=== PATIENT | female | born 1960 | race Caucasian/White ===

== ENCOUNTER 2016-03-27 11:00 | Outpatient (RCR) ==
--- NOTE | 2016-02-28 15:40 | RS.OPPTDN ---
Subjective Date of Note: 02/28/16 Visit #: 4 Date of Evaluation: 02/17/16 Payer Source: Medicaid Treatment Diagnosis: Neck and shoulder pain. Current Subjective/complaints:: Patient reports last treatment with manual therapy helped reduce level of pain. Reports pain elevated again yesterday. *Precautions: None Pain Assessment - Pain Description Pain Location: Neck pain with right UE pain also radiating into the right hand with the middle 3 fingers being the worst.. Pain Description: Constant Current Pain Intensity: moderate - Treatment Modality: Ultrasound Parameters/Method Applied: [id number] at 1.5w/cm2 to the right cervical paraspinals , mid scapula and infraspinatus region. Patient in sitting. Patient Position: Sitting - Heat/Cryotherapy Treatment: Hot Pack ([id number] to the right scapular region prior to US and MT. Patient in supine. ) Interventions - Exercise/Activities/Manual Therapy Exercises/Activities: Reviewed HEP, no new additions Manual Therapy: [id number] trigger point release to the upper cervical paraspinals , mid traps and the right infraspinatus. Patient in sitting. Total minutes of Manual Therapy: 18mins HOME EXERCISE PROGRAM: Isometric cervical retraction. Scapular retraction. - Charges Total Direct Minutes: 30mins Total Treatment Time: 50mins Procedures billed for this date of service:: HP, US, MT Assessment: Patient responding well to treatment. She will benefit from progressive postural strengthening. Patient Education: Body/Joint mechanics, Home Exercise Program Patient demonstrates compliance with HEP?: Yes Short Term Goals Goal #1: Patient independent with beginning HEP. Goal to be met by: 03/10/16 Progress towards Goal:: Met Goal #2: Neck pain intermittent. Goal to be met by: 03/10/16 Progress towards Goal:: Progressing Goal #3: AROM WFLs w/o increased pain. Goal to be met by: 03/10/16 Goal #4: Sleep improved 25% due to decreased pain. Goal to be met by: 03/10/16 Fixed Interest Dealer Goals Goal #1: Right shoulder AROM WFLs w/o increased pain. Goal to be met by: 03/31/16 Goal #2: Neck pain 2-3/10 at worst. Goal to be met by: 03/31/16 Progress towards goal: Progressing Goal #3: Right shoulder pain 3-4/10 at worst. Goal to be met by: 03/31/16 Goal #4: Independent with DC HEP. Goal to be met by: 03/31/16 Plan PLAN OF CARE EXPIRES ON:: 03/31/16 ORDER # VISITS AND/OR THROUGH DATE: 03/31/2016 PLAN: Continue Plan of Care (Continue modalities and progress with postural strengthening.)
--- NOTE | 2016-03-03 17:20 | RS.OPPTDN ---
Subjective Date of Note: 03/03/16 Visit #: 5 Date of Evaluation: 02/17/16 Payer Source: Medicaid Treatment Diagnosis: Neck and shoulder pain. Current Subjective/complaints:: Patient reports right lateral scapular pain is much better. She reports she is working on HEP. *Precautions: None Pain Assessment - Pain Description Pain Location: Neck pain with right UE pain also radiating into the right hand with the middle 3 fingers being the worst.. Pain Description: Constant Current Pain Intensity: moderate - Treatment Modality: Ultrasound Parameters/Method Applied: [id number] at 1.5w/cm2 to the right scapular region and upper traps. Patient in sitting. Patient Position: Sitting - Heat/Cryotherapy Treatment: Hot Pack ([id number] to right shoulder and scapular region. Patient in supine. ) Interventions - Exercise/Activities/Manual Therapy Exercises/Activities: [id number] Isometric cervical retraction. Assisted cervical stretching. Red theraband for scapular retraction. Reviewed wall angels. Scapular retraction. Total minutes of Exercise: 10mins Manual Therapy: [id number] trigger point release to the upper cervical paraspinals , mid traps and the right infraspinatus. Patient in sitting. Total minutes of Manual Therapy: 18mins HOME EXERCISE PROGRAM: Isometric cervical retraction. Scapular retraction. Red theraband for scapular retraction. - Charges Total Direct Minutes: 40mins Total Treatment Time: 60mins Procedures billed for this date of service:: HP, US, MT, EX Assessment: Patient responding to treatment and progressing with postural strengthening exercise. Patient Education: Education of diagnosis, Body/Joint mechanics, Home Exercise Program Patient demonstrates compliance with HEP?: Yes Short Term Goals Goal #1: Patient independent with beginning HEP. Goal to be met by: 03/10/16 Progress towards Goal:: Met Goal #2: Neck pain intermittent. Goal to be met by: 03/10/16 Progress towards Goal:: Progressing Goal #3: AROM WFLs w/o increased pain. Goal to be met by: 03/10/16 Progress towards Goal:: Progressing Goal #4: Sleep improved 25% due to decreased pain. Goal to be met by: 03/10/16 Vial Gauger Goals Goal #1: Right shoulder AROM WFLs w/o increased pain. Goal to be met by: 03/31/16 Goal #2: Neck pain 2-3/10 at worst. Goal to be met by: 03/31/16 Progress towards goal: Progressing Goal #3: Right shoulder pain 3-4/10 at worst. Goal to be met by: 03/31/16 Goal #4: Independent with DC HEP. Goal to be met by: 03/31/16 Plan PLAN OF CARE EXPIRES ON:: 03/31/16 ORDER # VISITS AND/OR THROUGH DATE: 03/31/2016
--- NOTE | 2016-03-07 16:49 | RS.OPPTDN ---
Subjective Date of Note: 03/07/16 Visit #: 6 Date of Evaluation: 02/17/16 Payer Source: Medicaid Treatment Diagnosis: Neck and shoulder pain. Current Subjective/complaints:: Patient says pain may be slightly better. Reports that she does not want to try mechanical traction again, but does want to do manual. Reports her pain is the worst at bedtime. States she cannot layon the R side. *Precautions: None Pain Assessment - Pain Description Pain Location: Neck pain with right UE pain also radiating into the right hand with the middle 3 fingers being the worst.. Pain Description: Constant Current Pain Intensity: moderate - Treatment Modality: Ultrasound Parameters/Method Applied: continuous @ 1.5 w/cm2 x 14 mins to the R UT and inferior border of the scapula Patient Position: Sitting - Heat/Cryotherapy Treatment: Hot Pack (20 mins to the R shoulder/scap/neck in supine) Interventions - Exercise/Activities/Manual Therapy Exercises/Activities: see MT Manual Therapy: [id number] trigger point release to the upper cervical paraspinals , mid traps and the right infraspinatus. Patient receives passive stretching of SB and rotation as well as cross stretching. 10 mins of occipital release and manual traction with L SB and rotation as well. HOME EXERCISE PROGRAM: Isometric cervical retraction. Scapular retraction. Red theraband for scapular retraction. - Charges Total Direct Minutes: 42 Total Treatment Time: 62 Procedures billed for this date of service:: hp, u/s, MT2 Assessment: Patient felt relief of muscle guarding and radicular symptoms with treatment today. She maintains mod mm tone to the entire R side (UT, rhomboids) . She will benefit from further MT and u/s for trigger points and radiculopathy. Patient Education: Education of diagnosis, Body/Joint mechanics, Home Exercise Program, Home Safety, Activity Modification, Education of Plan of Care Patient demonstrates compliance with HEP?: Yes Short Term Goals Goal #1: Patient independent with beginning HEP. Goal to be met by: 03/10/16 Progress towards Goal:: Met Goal #2: Neck pain intermittent. Goal to be met by: 03/10/16 Progress towards Goal:: Progressing Goal #3: AROM WFLs w/o increased pain. Goal to be met by: 03/10/16 Progress towards Goal:: Progressing Goal #4: Sleep improved 25% due to decreased pain. Goal to be met by: 03/10/16 Assisted Goals Goal #1: Right shoulder AROM WFLs w/o increased pain. Goal to be met by: 03/31/16 Goal #2: Neck pain 2-3/10 at worst. Goal to be met by: 03/31/16 Progress towards goal: Progressing Goal #3: Right shoulder pain 3-4/10 at worst. Goal to be met by: 03/31/16 Goal #4: Independent with DC HEP. Goal to be met by: 03/31/16 Plan PLAN OF CARE EXPIRES ON:: 03/31/16 ORDER # VISITS AND/OR THROUGH DATE: 03/31/2016 PLAN: Continue Plan of Care
--- NOTE | 2016-03-09 16:23 | RS.OPPTDN ---
Subjective Date of Note: 03/09/16 Visit #: 7 Date of Evaluation: 02/17/16 Payer Source: Medicaid Treatment Diagnosis: Neck and shoulder pain. Current Subjective/complaints:: Patient reports manual therapy has reduced pain and muscle tension in the right scapular region. States she has new orders to further treat right shoulder and partial RTC tear. States she has seen the PA of Dr. Martha Hooker. *Precautions: None Pain Assessment - Pain Description Pain Location: Neck pain with right scapular and upper arm pain. Pain Description: Constant Current Pain Intensity: moderate - Treatment Modality: Ultrasound Parameters/Method Applied: [id number] at 1.5w/cm2 to the right cervical paraspinals , traps, and mid scap region prior to MT. Patient in sitting. Patient Position: Sitting - Heat/Cryotherapy Treatment: Hot Pack ([id number] to the right scapular region prior to US and MT. Patient in sitting. ) Interventions - Exercise/Activities/Manual Therapy Exercises/Activities: Revewied HEP of scapular retraction, cervical retraction, and cervical ROM/stretching. Total minutes of Exercise: 3mins Manual Therapy: [id number] trigger point release to the upper cervical paraspinals , mid traps and the right infraspinatus with patient in supine. Reveiwed relaxation techniques and deep breathing. Total minutes of Manual Therapy: 18mins HOME EXERCISE PROGRAM: Isometric cervical retraction. Scapular retraction. Red theraband for scapular retraction. - Objective Findings Observations,measurements,etc.: Patient and PT discussed new orders. PT will contact physician for clarification of dx and possible infection patient reported. - Charges Total Direct Minutes: 33mins Total Treatment Time: 53mins Procedures billed for this date of service:: HP, US, MT Assessment: Patient responding well to manual therapy and seems to be working on basic HEP. Patient Education: Body/Joint mechanics, Home Exercise Program Patient demonstrates compliance with HEP?: Yes Short Term Goals Goal #1: Patient independent with beginning HEP. Goal to be met by: 03/10/16 Progress towards Goal:: Met Goal #2: Neck pain intermittent. Goal to be met by: 03/10/16 Progress towards Goal:: Progressing Goal #3: AROM WFLs w/o increased pain. Goal to be met by: 03/10/16 Progress towards Goal:: Progressing Goal #4: Sleep improved 25% due to decreased pain. Goal to be met by: 03/10/16 Penitentiary Goals Goal #1: Right shoulder AROM WFLs w/o increased pain. Goal to be met by: 03/31/16 Goal #2: Neck pain 2-3/10 at worst. Goal to be met by: 03/31/16 Progress towards goal: Progressing Goal #3: Right shoulder pain 3-4/10 at worst. Goal to be met by: 03/31/16 Goal #4: Independent with DC HEP. Goal to be met by: 03/31/16 Plan PLAN OF CARE EXPIRES ON:: 03/31/16 ORDER # VISITS AND/OR THROUGH DATE: 03/31/2016 PLAN: Continue Plan of Care
--- NOTE | 2016-03-13 15:26 | RS.OPPTDN ---
Subjective Date of Note: 03/13/16 Visit #: 8 Date of Evaluation: 02/17/16 Payer Source: Medicaid Treatment Diagnosis: Neck and shoulder pain. Current Subjective/complaints:: Reports the injection she had last week has helped reduce her pain significantly. *Precautions: None Pain Assessment - Pain Description Pain Location: Neck pain with right scapular and upper arm pain. Pain Description: Dull, Aching Pain Description: Constant Current Pain Intensity: 6/10 - Treatment Modality: Ultrasound Parameters/Method Applied: 10 mins. @ 1.5 w/cm2,continuous mode to R scapular / UT region Patient Position: Sitting - Heat/Cryotherapy Treatment: Hot Pack (20 mins. prior to US,and manual therapy) Interventions - Exercise/Activities/Manual Therapy Exercises/Activities: Revewied HEP of scapular retraction, cervical retraction, and cervical ROM/stretching. Manual Therapy: [id number] trigger point release to the upper cervical paraspinals , mid traps and the right infraspinatus with patient in sitting,deep tissue massage to same area Total minutes of Manual Therapy: 25 HOME EXERCISE PROGRAM: Isometric cervical retraction. Scapular retraction. Red theraband for scapular retraction. - Charges Total Direct Minutes: 35 Total Treatment Time: 55 Procedures billed for this date of service:: hp,US,manual therapy 2 Assessment: Patient reports relief along the medial border of the R scapula after manual therapy today.She is attentive to recommendations for postural awareness. Patient Education: Body/Joint mechanics, Home Exercise Program, Education of Plan of Care Patient demonstrates compliance with HEP?: Yes Short Term Goals Goal #1: Patient independent with beginning HEP. Goal to be met by: 03/10/16 Progress towards Goal:: Met Goal #2: Neck pain intermittent. Goal to be met by: 03/10/16 Progress towards Goal:: Progressing Goal #3: AROM WFLs w/o increased pain. Goal to be met by: 03/10/16 Progress towards Goal:: Progressing Goal #4: Sleep improved 25% due to decreased pain. 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 Goal to be met by: 03/31/16 Goal #2: Neck pain 2-3/10 at worst. Goal to be met by: 03/31/16 Progress towards goal: Progressing Goal #3: Right shoulder pain 3-4/10 at worst. Goal to be met by: 03/31/16 Progress towards goal: Progressing Goal #4: Independent with DC HEP. Goal to be met by: 03/31/16 Plan PLAN OF CARE EXPIRES ON:: 03/31/16 ORDER # VISITS AND/OR THROUGH DATE: 03/31/2016 PLAN: Continue Plan of Care
--- NOTE | 2016-03-15 16:23 | RS.OPPTDN ---
Subjective Date of Note: 03/15/16 Visit #: 9 Date of Evaluation: 02/17/16 Payer Source: Medicaid Treatment Diagnosis: Neck and shoulder pain. Current Subjective/complaints:: Patient c/o 5/10 pain to the R UT and scapula. States she did not get much sleep last night. Reports she has a throbbing BERGMAN today. *Precautions: None Pain Assessment - Pain Description Pain Location: Neck pain with right scapular and upper arm pain. Pain Description: Dull, Aching Pain Description: Constant Current Pain Intensity: 5/10, with BERGMAN - Treatment Modality: Ultrasound Parameters/Method Applied: 1.5 w/cm2 x 6 mins @ 1 mHz, then 5 mins @ 3.3mHz superficially to the R UT and inferior border of scapula Patient Position: Sitting - Heat/Cryotherapy Treatment: Hot Pack (over the R scapula/UT) Interventions - Exercise/Activities/Manual Therapy Exercises/Activities: Revewied HEP of scapular retraction, cervical retraction, and cervical ROM/stretching. Manual Therapy: [id number] trigger point release to the upper cervical paraspinals , mid traps and the R inferior border of the scap with patient in sitting,deep tissue massage to same area HOME EXERCISE PROGRAM: Isometric cervical retraction. Scapular retraction. Red theraband for scapular retraction. - Charges Total Direct Minutes: 36 Total Treatment Time: 51 Procedures billed for this date of service:: hp, u/s, MT2 Assessment: Patient has BERGMAN today and 5/10 pain to the R UT/infraspinatus region which was relieved with treatment today. Several small trigger points that were inactive remain in the above area with mod muscle guarding limiting R shoulder ROM. Trigger points were less sensitive and BERGMAN was half relieved per patient following session. Patient Education: Education of diagnosis, Body/Joint mechanics, Home Exercise Program, Home Safety, Activity Modification, Education of Plan of Care Comments: Biofreeze given for further relief Patient demonstrates compliance with HEP?: Yes Short Term Goals Goal #1: Patient independent with beginning HEP. Goal to be met by: 03/10/16 Progress towards Goal:: Met Goal #2: Neck pain intermittent. Goal to be met by: 03/10/16 Progress towards Goal:: Progressing Goal #3: AROM WFLs w/o increased pain. Goal to be met by: 03/10/16 Progress towards Goal:: Progressing Goal #4: Sleep improved 25% due to decreased pain. Goal to be met by: 03/10/16 Shelter Goals Goal #1: Right shoulder AROM WFLs w/o increased pain. Goal to be met by: 03/31/16 Goal #2: Neck pain 2-3/10 at worst. Goal to be met by: 03/31/16 Progress towards goal: Progressing Goal #3: Right shoulder pain 3-4/10 at worst. Goal to be met by: 03/31/16 Progress towards goal: Progressing Goal #4: Independent with DC HEP. Goal to be met by: 03/31/16 Plan PLAN OF CARE EXPIRES ON:: 03/31/16 ORDER # VISITS AND/OR THROUGH DATE: 03/31/2016 PLAN: Continue Plan of Care
--- NOTE | 2016-03-17 16:09 | RS.OPPTDN ---
Subjective Date of Note: 03/17/16 Visit #: 10 Date of Evaluation: 02/17/16 Payer Source: Medicaid Treatment Diagnosis: Neck and shoulder pain. Current Subjective/complaints:: Reports tenderness @ C7 today and feels "crunching" with rotation of her neck. *Precautions: None Pain Assessment - Pain Description Pain Location: Neck pain with right scapular and upper arm pain. Pain Description: Dull, Aching Pain Description: Constant Current Pain Intensity: 6-7/10 - Treatment Modality: Ultrasound Parameters/Method Applied: 10 mins. @ 1.5 w/cm2,continuous mode to R shoulder. Patient Position: Sitting - Heat/Cryotherapy Treatment: Hot Pack (20 mins. prior to US and manual therapy) Interventions - Exercise/Activities/Manual Therapy Exercises/Activities: Revewied HEP of scapular retraction, cervical retraction, and cervical ROM/stretching. Total minutes of Exercise: 0 Manual Therapy: [id number] trigger point release to the upper cervical paraspinals , mid traps and the R inferior border of the scap with patient in sitting,deep tissue massage to same area Total minutes of Manual Therapy: 25 mins.deep tisue mobs. to cervical/UT's, scapulae,trigger point pressure t HOME EXERCISE PROGRAM: Isometric cervical retraction. Scapular retraction. Red theraband for scapular retraction. - Charges Total Direct Minutes: 35 Total Treatment Time: 55 Procedures billed for this date of service:: hp,US,manual therapy 2 Assessment: Reports significant relief today after treatment,less pain with cervical motion.She has significant trigger point in the muscle belly of R upper trap.She has good understanding of hEP, and pain control. Patient Education: Body/Joint mechanics Patient demonstrates compliance with HEP?: Yes Short Term Goals Goal #1: Patient independent with beginning HEP. Goal to be met by: 03/10/16 Progress towards Goal:: Met Goal #2: Neck pain intermittent. Goal to be met by: 03/10/16 Progress towards Goal:: Progressing Goal #3: AROM WFLs w/o increased pain. Goal to be met by: 03/10/16 Progress towards Goal:: Progressing Goal #4: Sleep improved 25% due to decreased pain. Goal to be met by: 03/10/16 (N/A) Intermediate Goals Goal #1: Right shoulder AROM WFLs w/o increased pain. Goal to be met by: 03/31/16 Progress towards goal: Progressing Goal #2: Neck pain 2-3/10 at worst. Goal to be met by: 03/31/16 Progress towards goal: Progressing Goal #3: Right shoulder pain 3-4/10 at worst. Goal to be met by: 03/31/16 Progress towards goal: Progressing Goal #4: Independent with DC HEP. Goal to be met by: 03/31/16 Progress towards goal: Progressing Plan PLAN OF CARE EXPIRES ON:: 03/31/16 ORDER # VISITS AND/OR THROUGH DATE: 03/31/2016 PLAN: Continue Plan of Care
--- NOTE | 2016-03-20 15:53 | RS.OPPTDN ---
Subjective Date of Note: 03/20/16 Visit #: 11 Date of Evaluation: 02/17/16 Payer Source: Medicaid Treatment Diagnosis: Neck and shoulder pain. Current Subjective/complaints:: Patient reports last treatment reduced neck pain and headache. States she is working on stretching. Pain is mainly at the right mid scapular border and the porsterior shoulder joint (around infraspinatus). *Precautions: None Pain Assessment - Pain Description Pain Location: Neck pain with right scapular and upper arm pain. Pain Description: Dull, Aching Pain Description: Constant Current Pain Intensity: 5-6/10 - Treatment Modality: Ultrasound Parameters/Method Applied: [id number] at 1.5w/cm2 to the right cervical paraspinals , trap trigger point, mid scapular border, and posterior shoulder joint. Patient Position: Sitting - Heat/Cryotherapy Treatment: Hot Pack ([id number] to the right shoulder and scapular region prior to US and MT. Supine. ) Interventions - Exercise/Activities/Manual Therapy Exercises/Activities: x3mins. Revewied HEP of scapular retraction, cervical retraction, limited anterior chest stretch, and cervical ROM/stretching. Total minutes of Exercise: 3mins Manual Therapy: [id number] trigger point release to the upper cervical paraspinals , mid traps and the R inferior border of the scap with patient in sitting, deep tissue massage to same area Total minutes of Manual Therapy: 24mins HOME EXERCISE PROGRAM: Isometric cervical retraction. Scapular retraction. Red theraband for scapular retraction. - Charges Total Direct Minutes: 39mins Total Treatment Time: 59mins Procedures billed for this date of service:: HP, US, MTx2 Assessment: Patient responding to treatment. Patient Education: Body/Joint mechanics, Home Exercise Program Patient demonstrates compliance with HEP?: Yes Short Term Goals Goal #1: Patient independent with beginning HEP. Goal to be met by: 03/10/16 Progress towards Goal:: Met Goal #2: Neck pain intermittent. Goal to be met by: 03/10/16 Progress towards Goal:: Progressing Goal #3: AROM WFLs w/o increased pain. Goal to be met by: 03/10/16 Progress towards Goal:: Progressing Goal #4: Sleep improved 25% due to decreased pain. Goal to be met by: 03/10/16 (N/A) Usp Goals Goal #1: Right shoulder AROM WFLs w/o increased pain. Goal to be met by: 03/31/16 Progress towards goal: Progressing Goal #2: Neck pain 2-3/10 at worst. Goal to be met by: 03/31/16 Progress towards goal: Progressing Goal #3: Right shoulder pain 3-4/10 at worst. Goal to be met by: 03/31/16 Progress towards goal: Progressing Goal #4: Independent with DC HEP. Goal to be met by: 03/31/16 Progress towards goal: Progressing Plan PLAN OF CARE EXPIRES ON:: 03/31/16 ORDER # VISITS AND/OR THROUGH DATE: 03/31/2016 PLAN: Continue Plan of Care
--- NOTE | 2016-03-22 15:19 | RS.OPPTDN ---
Subjective Date of Note: 03/22/16 Visit #: 12 Date of Evaluation: 02/17/16 Payer Source: Medicaid Treatment Diagnosis: Neck and shoulder pain. Current Subjective/complaints:: Patient reports trigger point work helped reduce pain last session. *Precautions: None Pain Assessment - Pain Description Pain Location: Neck pain with right scapular and upper arm pain. Pain Description: Dull, Aching Pain Description: Constant Current Pain Intensity: 5/10 - Treatment Modality: Ultrasound Parameters/Method Applied: [id number] at 1.5w/cm2 to the right cervical paraspinals , traps, and posterior shoulder joint. Patient in sitting. Patient Position: Sitting - Heat/Cryotherapy Treatment: Hot Pack ([id number] to the right neck and scapular region prior to US and MT. Supine. ) Interventions - Exercise/Activities/Manual Therapy Exercises/Activities: [id number]. Revewied HEP. Assisted with cervical stretching. Scapular retraction, cervical retraction. Added black theraband for scapular retraction. Began red theraband for bilateral shoulder ER. Total minutes of Exercise: 10mins Manual Therapy: [id number] trigger point release to the upper cervical paraspinals , mid traps and the R inferior border of the scap with patient in sitting, deep tissue massage to same area Total minutes of Manual Therapy: 20mins HOME EXERCISE PROGRAM: Isometric cervical retraction. Scapular retraction. Red theraband for scapular retraction. - Charges Total Direct Minutes: 42mins Total Treatment Time: 57mins Procedures billed for this date of service:: HP, US, MT, EX Assessment: Patient reporting a reduction in pain and progressing with strengthening. Patient Education: Home Exercise Program Patient demonstrates compliance with HEP?: Yes Short Term Goals Goal #1: Patient independent with beginning HEP. Goal to be met by: 03/10/16 Progress towards Goal:: Met Goal #2: Neck pain intermittent. Goal to be met by: 03/10/16 Progress towards Goal:: Met Goal #3: AROM WFLs w/o increased pain. Goal to be met by: 03/10/16 Progress towards Goal:: Progressing Goal #4: Sleep improved 25% due to decreased pain. 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 Goal to be met by: 03/31/16 Progress towards goal: Progressing Goal #2: Neck pain 2-3/10 at worst. Goal to be met by: 03/31/16 Progress towards goal: Progressing Goal #3: Right shoulder pain 3-4/10 at worst. Goal to be met by: 03/31/16 Progress towards goal: Progressing Goal #4: Independent with DC HEP. Goal to be met by: 03/31/16 Progress towards goal: Progressing Plan PLAN OF CARE EXPIRES ON:: 03/31/16 ORDER # VISITS AND/OR THROUGH DATE: 03/31/2016 PLAN: Continue Plan of Care
--- NOTE | 2016-03-24 12:07 | RS.OPPTDN ---
Subjective Date of Note: 03/24/16 Visit #: 13 Date of Evaluation: 02/17/16 Payer Source: Medicaid Treatment Diagnosis: Neck and shoulder pain. Current Subjective/complaints:: Patient reports mild discomfort at the base of the cervicl spine. Reports right mid scap and posterior shoulder joint pain are much better, trigger points are less painful. States she is working on postural exercises with theraband. *Precautions: None Pain Assessment - Pain Description Pain Location: Neck pain with right scapular and upper arm pain. Pain Description: Dull, Aching Pain Description: Constant Current Pain Intensity: 4-5/10 - Treatment Modality: Ultrasound Parameters/Method Applied: [id number] to the bilateral cervical paraspinals, right traps, and right shoulder joint. Patient in sitting. Patient Position: Sitting - Heat/Cryotherapy Treatment: Hot Pack ([id number] to the right shoulder prior to US. Patient in supine. ) Interventions - Exercise/Activities/Manual Therapy Exercises/Activities: x8mins. Revewied HEP. Assisted with cervical stretching. Scapular retraction, cervical retraction. Reviewed theraband for scapular retraction and anterior chest/pectoralis stretching. Total minutes of Exercise: 8mins. Manual Therapy: [id number] trigger point release to the upper cervical paraspinals , mid traps and the R inferior border of the scap with patient in sitting, deep tissue massage to same area Total minutes of Manual Therapy: 18mins HOME EXERCISE PROGRAM: Isometric cervical retraction. Scapular retraction. Red theraband for scapular retraction. - Charges Total Direct Minutes: 40mins Total Treatment Time: 55mins Procedures billed for this date of service:: HP, US, MT, EX Assessment: Patient progressing well with postural strengthening exercise. Patient Education: Education of diagnosis, Body/Joint mechanics, Home Exercise Program, Home Safety Patient demonstrates compliance with HEP?: Yes Short Term Goals Goal #1: Patient independent with beginning HEP. Goal to be met by: 03/10/16 Progress towards Goal:: Met Goal #2: Neck pain intermittent. Goal to be met by: 03/10/16 Progress towards Goal:: Met Goal #3: AROM WFLs w/o increased pain. Goal to be met by: 03/10/16 Progress towards Goal:: Progressing Goal #4: Sleep improved 25% due to decreased pain. 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 Goal to be met by: 03/31/16 Progress towards goal: Progressing Goal #2: Neck pain 2-3/10 at worst. Goal to be met by: 03/31/16 Progress towards goal: Progressing Goal #3: Right shoulder pain 3-4/10 at worst. Goal to be met by: 03/31/16 Progress towards goal: Progressing Goal #4: Independent with DC HEP. Goal to be met by: 03/31/16 Progress towards goal: Progressing Plan PLAN OF CARE EXPIRES ON:: 03/31/16 ORDER # VISITS AND/OR THROUGH DATE: 03/31/2016 PLAN: Continue Plan of Care
--- NOTE | 2016-03-27 13:20 | RS.OPPTDN ---
Subjective Date of Note: 03/27/16 Visit #: 14 Date of Evaluation: 02/17/16 Payer Source: Medicaid Treatment Diagnosis: Neck and shoulder pain. Current Subjective/complaints:: Patient reports continued improvement in neck and shoulder pain. States she is working on HEP. States trigger point release is helping. *Precautions: None Pain Assessment - Pain Description Pain Location: Neck pain with right scapular and upper arm pain. Pain Description: Dull, Aching Pain Description: Constant Current Pain Intensity: 4/10 - Treatment Modality: Ultrasound Parameters/Method Applied: [id number] at 1.5w/cm2 to the right upper traps, mid scap, and posterior shoulder joint. Patient Position: Sitting - Heat/Cryotherapy Treatment: Hot Pack ([id number] to the right shoulder and scapular region. Supine. ) Interventions - Exercise/Activities/Manual Therapy Exercises/Activities: Discussed HEP. No new additions. Manual Therapy: [id number] trigger point release and deep tissue work to the upper cervical paraspinals, mid traps and the border of the right scap with patient in sitting. Total minutes of Manual Therapy: 20mins HOME EXERCISE PROGRAM: Isometric cervical retraction. Scapular retraction. Red theraband for scapular retraction. Red theraband for bilateral shoulder ER. - Charges Total Direct Minutes: 32mins Total Treatment Time: 52mins Procedures billed for this date of service:: HP, US, MT Assessment: Patient continues to report progress. Will need to continue postural correction and strengthening. Patient Education: Home Exercise Program, Activity Modification, Education of Plan of Care Patient demonstrates compliance with HEP?: Yes Short Term Goals Goal #1: Patient independent with beginning HEP. Goal to be met by: 03/10/16 Progress towards Goal:: Met Goal #2: Neck pain intermittent. Goal to be met by: 03/10/16 Progress towards Goal:: Met Goal #3: AROM WFLs w/o increased pain. Goal to be met by: 03/10/16 Progress towards Goal:: Progressing Goal #4: Sleep improved 25% due to decreased pain. 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 Goal to be met by: 03/31/16 Progress towards goal: Progressing Goal #2: Neck pain 2-3/10 at worst. Goal to be met by: 03/31/16 Progress towards goal: Progressing Goal #3: Right shoulder pain 3-4/10 at worst. Goal to be met by: 03/31/16 Progress towards goal: Progressing Goal #4: Independent with DC HEP. Goal to be met by: 03/31/16 Progress towards goal: Progressing Plan PLAN OF CARE EXPIRES ON:: 03/31/16 ORDER # VISITS AND/OR THROUGH DATE: 03/31/2016 PLAN: Continue Plan of Care
== END 2016-03-28 ==
PROVIDERS: ATTEND Neurological Surgery
DX: M54.12 Radiculopathy, cervical region (principal); M12.811 Other specific arthropathies, not elsewhere classified, right shoulder; M25.511 Pain in right shoulder

== ENCOUNTER 2016-03-31 11:20 | Outpatient (RCR) ==
--- NOTE | 2016-03-31 13:26 | RS.OPPTDN ---
Subjective Date of Note: 03/31/16 Visit #: 15 Date of Evaluation: 02/17/16 Payer Source: Medicaid Treatment Diagnosis: Neck and shoulder pain. Current Subjective/complaints:: Patient reports she has made good progress. She is able to do more light activities in her home without an increase in pain. She will continue to progress HEP and postural strengthening following discharge. *Precautions: None Pain Assessment - Pain Description Pain Location: Neck pain with right scapular and upper arm pain. Pain Description: Constant Current Pain Intensity: 3-4/10 - Treatment Modality: Ultrasound Parameters/Method Applied: [id number] at 1.5w/cm2 to the right cervcal paraspinals , posterior shoulder joint, and mid scap region. Patient Position: Sitting - Heat/Cryotherapy Treatment: Hot Pack ([id number] to the right shoulder prior to US. Patient in sitting. ) Interventions - Exercise/Activities/Manual Therapy Exercises/Activities: [id number] Reivewed HEP. Isometric cervical retration, cuff series, and increased to green theraband for bilateral shoulder ER. Total minutes of Exercise: 10mins Manual Therapy: [id number] trigger point release and deep tissue work to the upper cervical paraspinals, mid traps and the border of the right scap with patient in sitting. Total minutes of Manual Therapy: 18mins HOME EXERCISE PROGRAM: Isometric cervical retraction. Scapular retraction. Red theraband for scapular retraction. Red theraband for bilateral shoulder ER. - Charges Total Direct Minutes: 40mins Total Treatment Time: 55mins Procedures billed for this date of service:: HP, US, MT, EX Assessment: Patient has progressed and POC ended this date. She will continue HEP following discharge. Patient Education: Body/Joint mechanics, Home Exercise Program, Education of Plan of Care Patient demonstrates compliance with HEP?: Yes Short Term Goals Goal #1: Patient independent with beginning HEP. Goal to be met by: 03/10/16 Progress towards Goal:: Met Goal #2: Neck pain intermittent. Goal to be met by: 03/10/16 Progress towards Goal:: Met Goal #3: AROM WFLs w/o increased pain. Goal to be met by: 03/10/16 Progress towards Goal:: Met Goal #4: Sleep improved 25% due to decreased pain. 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 Goal to be met by: 03/31/16 Progress towards goal: Progressing Goal #2: Neck pain 2-3/10 at worst. Goal to be met by: 03/31/16 Progress towards goal: Progressing Goal #3: Right shoulder pain 3-4/10 at worst. Goal to be met by: 03/31/16 Progress towards goal: Progressing Goal #4: Independent with DC HEP. Goal to be met by: 03/31/16 Progress towards goal: Met Plan PLAN OF CARE EXPIRES ON:: 03/31/16 ORDER # VISITS AND/OR THROUGH DATE: 03/31/2016 PLAN: Plan for Discharge (Discharge with HEP.)
--- NOTE | 2016-03-31 13:28 | RS.QUICKDC ---
Discharge from PT Date of Discharge: 03/31/16 Number of Visits: 15 Reason for Discharge: Patient progressed with treatment. She met 5 of 8 treatment goals and was independent with HEP. Please refer to last Daily Note for specifics of treatment and progress with goals. Discharge this time and HEP.
== END 2016-04-25 ==
PROVIDERS: ATTEND Neurological Surgery
DX: M54.12 Radiculopathy, cervical region (principal); M12.811 Other specific arthropathies, not elsewhere classified, right shoulder; M25.511 Pain in right shoulder

== ENCOUNTER 2016-05-09 18:24 | Emergency (ER) ==
[2016-05-09 18:29] VITALS: BP 151/83; TEMP 98.6; BMI 34.3
--- NOTE | 2016-05-09 19:20 | ED.PDOC ---
General ED Provider: Dr. SORAYA THOMAS Chief Complaint: Fall Stated Complaint: patient is a 56 year old female whos comes to the ER stating that she fell into the door when going up step. at 4 pm this evening, she felt dizzy afterwards. Has neck pain after the fall. Also states left side of lower lip and left side of forehead hit door facing. c/o pain to right elbow and forearm. states then fell back and hit back of head. Time Seen by Physician: 19:10 Mode of Arrival: Walk-In Information Source: Patient Exam Limitations: No limitations Primary Care Provider: GIUSEPPE SANTAMARIA Nursing and Triage Documentation Reviewed and Agree: Yes Trauma/Injury Complaint Exam - Facial Injury Complaint/Exam Location of Pain: Reports: Left, Forehead, Upper lip Mechanism of Injury: Reports: Trauma Onset/Duration: 2 hours ago Symptoms Are: Still present Onset of Pain: Reports: Immediate Initial Severity: Severe Current Severity: Moderate Location: Reports: Diffuse Character: Reports: Dull, Aching Alleviating: Reports: None Aggravating: Reports: Movement, Eating Associated Signs and Symptoms: Reports: Swelling, Bruising. Denies: Loss of consciousness Related Surgical History: Reports: None Facial Findings: Present: Swelling, Abrasion Face Picture: 1 - contusion Differential Diagnoses: Abrasion, Contusion - Trauma Complaint/Exam Location of Pain or Injury: Reports: RUE Mechanism of Injury: Reports: Fall Onset/Duration: 2 hours Symptoms Are: Still present Timing of Treatment: Immediate Initial Severity: Severe Current Severity: Moderate Character: Reports: Aching Aggravating: Reports: Movement Alleviating: Reports: Rest Associated Signs and Symptoms: Reports: Swelling. Denies: LOC, Confusion, Memory loss, Lethargy, Vomiting, Bleeding, Bruising, Extremity disuse, Painful respiration, Hoarseness, Dysphagia, Hemoptysis, Significant blood loss Related History: Denies: Similar episode, Alcohol abuse, Drug abuse, Alleged assault, Anticoagulants, Occupational injury : No Skin Findings: Present: Contusion Differential Diagnoses: Fracture, Sprain, Strain Review of Systems - Review Of Systems Constitutional: Reports: No symptoms Cardiac: Reports: Lightheadedness Musculoskeletal: Reports: Joint swelling Skin: Reports: Bruising All Other Systems: Reviewed and Negative Past Medical History - Past Medical History Endocrine: Reports: None Cardiovascular: Reports: None Respiratory: Reports: None Hematological: Reports: None Gastrointestinal: Reports: None Genitourinary: Reports: None Neuro/Psych: Reports: None Musculoskeletal: Reports: None Cancer: Reports: None Last Menstrual Period: n/a - Surgical History General Surgical History: Reports: Hysterectomy, Cholecystectomy, Tonsillectomy , Other (vericose vein right leg) - Family History Family History: Reports: None - Social History Smoking Status: Never smoker Hx Substance Use: No Alcohol Screening: None Physical Exam - Physical Exam Appearance: Obese Ill-appearing: Moderate Pain Distress: Moderate Eyes: GENEVA, EOMI, Conjunctiva clear ENT: Ears normal, Nose normal, Oropharynx normal Neck: Supple Respiratory: Airway patent, Breath sounds clear, Breath sounds equal, Respirations nonlabored Cardiovascular: RRR, Pulses normal, No rub, No murmur GI/: Soft, Nontender, No masses, Bowel sounds normal, No Organomegaly Musculoskeletal: Limited ROM, Edema (right elbow ) Psychiatric: Anxious Interpretation - Radiology Interpretation Radiology Interpretation By: Radiologist Radiology Results: Negative Exam Interpreted: CT Scan (Head, c spine, Maxial facial ) Radiology Interpretation By: ED Physician Radiology Results: Negative Exam Interpreted: Other (right forearm and Elbow ) Critical Care Note - Critical Care Note Total Time (mins): 0 Course - Course Orders, Labs, Meds: Orders Category Date Time Status CT CERVICAL SPINE W/O CONTRAST Stat RADS 05/09/16 19:[address] HEAD W/O CONTRAST Stat RADS 05/09/16 19:[address] MAXILLOFACIAL W/O CONTRAST Stat RADS 05/09/16 19:11 Completed ELBOW, RIGHT MIN 3 VIEWS Stat RADS 05/09/16 19:11 Completed FOREARM, RIGHT 2 VIEWS Stat RADS 05/09/16 19:11 Completed Vital Signs: Temp Pulse Resp BP Pulse Ox 05/09/16 18:25 98.6 F 80 16 151/83 H 98 Departure - Departure Time of Disposition: 20:45 Disposition: HOME SELF-CARE Discharge Problem: Contusion Qualifiers: Encounter type: initial encounter Contusion area: head Contusion of head detail : unspecified part of head Qualifier Code: (S00.93XA) Contusion of unspecified part of head, initial encounter Elbow sprain Qualifiers: Encounter type: initial encounter Laterality: right Qualifier Code: (S53.401A) Unspecified sprain of right elbow, initial encounter Instructions: Elbow Sprain (ED), Facial Contusion (ED) Condition: Good Pt referred to PMD for follow-up: Yes Additional Instructions: Take pain medication as prescribed Follow up with PCP in 3 -5 days Prescriptions: Acetaminophen with Codeine [Tylenol #3 Tab] 1 tab PO Q4H PRN #15 tablet PRN Reason: Severe Pain Allergies/Adverse Reactions: Allergies aspirin Allergy (Severe, Unverified 08/08/13 11:15) rash, swelling all over Pt notified to buy medical alert necklace levofloxacin [From Levaquin] Allergy (Severe, Unverified 12/02/15 09:43) vomiting naproxen Adverse Reaction (Verified 05/09/16 18:29) Home Medications: Ambulatory Orders Acetaminophen with Codeine [Tylenol #3 Tab] 1 tab PO Q4H PRN #15 tablet Cyclobenzaprine HCl [Flexeril] 10 mg PO BEDTIME 05/09/16 Disposition Discussed With: Patient
--- NOTE | 2016-05-09 19:36 | CT ---
EXAM: CT scan of the head without contrast HISTORY: Fall TECHNIQUE: Imaging of the head was performed without intravenous contrast. 5 mm thin axial images and coronal and sagittal images were provided for interpretation. FINDINGS: The ray-white interface appears normal. No acute hemorrhages are seen. There are no ex traaxial collections. There is no mass effect. The basal cisterns are patent. The paranasal sinus es and mastoid air cells are clear. The calvarium and extracranial soft tissues are normal. IMPRESSION: No acute intracranial abnormalities are seen.
--- NOTE | 2016-05-09 19:40 | CT ---
Exam: CT scan of the maxillofacial area. Date: 05/09/2016. Comparison: None. HISTORY: Trauma. TECHNIQUE: Helical scan of the maxillofacial area was performed. FINDINGS: A cavum septum pellucidum is incidentally seen, but the cerebral hemispheres are incomple tely visualized. The frontals soft tissues are within normal limits. The bones of the maxillofacia l region, including the nasal bone and mandible are intact. There has been extraction of multiple m axillary teeth. The paranasal sinuses and mastoid air cells are clear. The nasal septum is midline . There is no contact of the nasal septum and turbinate mucosa. Middle turbinates have a normal or ientation. The ostiomeatal complexes are patent. Impression: No acute findings in the maxillofacial region; no evidence of fracture or radiopaque fo reign body.
--- NOTE | 2016-05-09 19:53 | CT ---
EXAM: CT scan of the cervical spine without contrast HISTORY: Neck pain, trauma TECHNIQUE: Imaging of the cervical spine was performed without contrast. Sagittal and coronal mercedes nstructions and axial images were provided for interpretation. FINDINGS: The occipital condyles, C1 ring appear intact. The odontoid process and C2 vertebral bod y appear intact. There is a normal alignment of the facet joints. The spinous processes are normal . The prevertebral soft tissues are normal. IMPRESSION: No acute fracture dislocation seen within the cervical spine.
--- NOTE | 2016-05-09 20:40 | DI ---
Exam: Right elbow three views HISTORY: Elbow injury and pain Findings / impression: No significant bony or articular abnormality. Negative exam.
--- NOTE | 2016-05-09 20:40 | DI ---
Exam: Rightforearm two views HISTORY: Injury and pain Findings / impression: No bony abnormality is seen. No significant surrounding soft tissue abnorma lity. Negative exam.
== END 2016-05-09 20:50 | disposition home or self-care (01) ==
LOC: ED 18:24
DX: S00.93XA Contusion of unspecified part of head, initial encounter (principal); S53.401A Unspecified sprain of right elbow, initial encounter; R42 Dizziness and giddiness; M54.2 Cervicalgia; W19.XXXA Unspecified fall, initial encounter
CPT/HCPCS: 99283

== ENCOUNTER 2016-05-11 10:30 | Outpatient (CLI) ==
--- NOTE | 2016-05-11 12:26 | DI ---
EXAM: RIGHT SHOULDER HISTORY: Disorder of bone FINDINGS: Right shoulder three-view. There is heterogeneous density within the medullary portion o f the upper humerus extending into the humeral neck. No periosteal reaction or fracture. General b one density is otherwise within normal limits. The AC and glenohumeral joints appear normal. Olivia l soft tissues. IMPRESSION: Heterogeneous density upper humerus possibly related to bony infarction or chondroid tumor (benign v ersus malignant). Consider correlation with MRI, especially if there is regional pain.
--- NOTE | 2016-05-11 12:31 | DI ---
EXAM: Scapula, two-view HISTORY: Disorder of bone COMPARISON: None FINDINGS/IMPRESSION: The scapula appears normal. There is a indeterminate mixed lytic and scleroti c lesion in the right humerus. This is better characterized on CT same day. No focal soft tissue ab normality
--- NOTE | 2016-05-11 12:55 | CT ---
EXAM: Noncontrast CT of the right shoulder HISTORY: Other specified disorders of bone COMPARISON: None available TECHNIQUE: Noncontrast CT of the right shoulder FINDINGS: No fracture or dislocation is identified. No significant joint space loss of the glenohumeral joint is seen. There is minimal acromioclavicular joint marginal osteophyte and subcortical cyst formati on. No glenohumeral joint effusion is seen. There is a subcortical cyst of the anterior aspect of the greater tuberosity. There is a chondroid matrix lesion of the humeral neck with intervening chante encies. No cortical destruction is seen. Evaluation of the rotator cuff is limited with noncontras t CT. IMPRESSION: No acute osseous abnormality. Humeral neck lesion. The appearance and location is suggestive of an enchondroma. If there is pain in this region, MRI without and with IV contrast could be considered to exclude other etiologies. Otherwise, 3-month follow-up radiographs are recommended to document stability. Minimal acromioclavicular joint osteoarthritis. Small subcortical cyst of the greater tuberosity which can be seen with rotator cuff pathology.
== END 2016-05-11 10:31 | disposition home or self-care (01) ==
LOC: RAD 10:30
PROVIDERS: ATTEND Nurse Practitioner Family
DX: M89.8X1 Other specified disorders of bone, shoulder (principal)

== ENCOUNTER 2016-07-13 14:35 | Outpatient (CLI) | END 2016-07-13 14:36 | disposition home or self-care (01) | LOC: CAR 14:35 | PROVIDERS: ATTEND Nurse Practitioner Family | DX: I49.9 Cardiac arrhythmia, unspecified (principal) | CPT/HCPCS: 93005; 93010 ==

== ENCOUNTER 2016-09-07 13:43 | Outpatient (CLI) ==
--- NOTE | 2016-09-07 14:03 | DI ---
EXAM: RIGHT SHOULDER HISTORY: Mass on right shoulder FINDINGS: Right shoulder three-view. Compared to 05/11/2016. Again noted is heterogeneous density within the upper humeral metaphysis with no radiographic change since previous exam. No fracture i s identified. No arthropathy. Soft tissues are grossly unremarkable. IMPRESSION: Stable heterogeneous density of the proximal humeral metaphysis which would be most consistent with bony infarction. Chondroid tumor remains within the differential. If more definite diagnostic info rmation is indicated, consider correlation with MRI.
== END 2016-09-07 13:44 | disposition home or self-care (01) ==
LOC: RAD 13:43
PROVIDERS: ATTEND Physical Medicine & Rehabilitation
DX: R22.31 Localized swelling, mass and lump, right upper limb (principal)

== ENCOUNTER 2017-10-17 15:40 | Outpatient (CLI) | END 2017-10-17 15:41 | disposition home or self-care (01) | LOC: FCC-LAB 15:40 | PROVIDERS: ATTEND Family Medicine | DX: R53.81 Other malaise (principal); R00.2 Palpitations | CPT/HCPCS: 36415; 80053; 84443; 85025 ==

== ENCOUNTER 2017-11-07 16:12 | Outpatient (CLI) ==
[2017-11-07 16:47] VITALS: BP 140/89; TEMP 98
[2017-11-07] MEDS ORDERED: SODIUM CHLORIDE 500 ML IV STA (16:47)
[2017-11-07] MEDS: SODIUM CHLORIDE 1,000 ML IV SCH ×3 (16:51→18:59)
--- NOTE | 2017-11-07 17:53 | CT ---
EXAM: CT of the abdomen and pelvis with and without contrast. HISTORY: Right lower quadrant pain. Prior history of kidney stones. Prior cholecystectomy and hyst erectomy.. COMPARISON: 10/16/2014 TECHNIQUE: Contiguous axial images at 5 mm intervals were obtained from lung bases to the pubic symp hysis. The study was performed before and after IV contrast. Oral contrast was not given. CONTRAST: 75 ml of Omnipaque 350. FINDINGS: CHEST: The lung bases are clear. Heart size is within normal limits. ABDOMEN: LIVER: The liver demonstrates normal homogeneous enhancement without solid mass lesions or intrahepa tic ductal dilatation. GALLBLADDER: The gallbladder is absent. There are clips in the gallbladder fossa. No fluid or infl ammation is seen. PANCREAS: The pancreas demonstrates normal homogeneous enhancement without solid masses or surroundi ng inflammation. SPLEEN: The spleen demonstrates normal homogeneous enhancement. No mass lesions are identified. ADRENAL GLANDS: Normal. KIDNEYS: The kidneys demonstrate normal homogeneous enhancement without solid masses, hydronephrosis or nephrolithiasis. There are no obstructing ureteral stones. AORTA: The aorta is well opacified. There is no aneurysm or dissection. RETROPERITONEUM: There is no significant retroperitoneal or mesenteric adenopathy. No fluid collect ions or mass lesions. BOWEL: The bowel is unopacified. There are no dilated loops of small bowel to suggest small bowel o bstruction. There is no free fluid, free air or significant inflammatory process. The appendix is i dentified and appears normal. There is no fluid or inflammation in the right lower quadrant. A moder [id number] amount of stool is seen throughout the colon. Scattered diverticula are seen without ev idence of acute diverticulitis. PELVIS: BLADDER: The bladder is not well distended which limits evaluation. No acute abnormalities are seen GENITOURINARY STRUCTURES: The uterus is absent. There is no fluid the pelvis. OSSEOUS STRUCTURES: Normal for age. IMPRESSION: 1. No acute intra-abdominal abnormalities. No free fluid or free air or significant inflammatory pr ocess. 2. The appendix is identified and is normal. There are no obstructing ureteral stones. 3. Diverticulosis without evidence of acute diverticulitis.
== END 2017-11-07 16:13 | disposition home or self-care (01) ==
LOC: OPMED 16:12
PROVIDERS: ATTEND Family Medicine
DX: R10.31 Right lower quadrant pain (principal); R19.7 Diarrhea, unspecified; E86.0 Dehydration; Z87.442 Personal history of urinary calculi
CPT/HCPCS: 36415; 80053; 84439; 85025; 96360; 96361

== ENCOUNTER 2017-11-07 17:32 | Outpatient (CLI) | END 2017-11-07 17:33 | disposition home or self-care (01) | LOC: FCC-LAB 17:32 | PROVIDERS: ATTEND Family Medicine | DX: R10.31 Right lower quadrant pain (principal); R19.7 Diarrhea, unspecified | CPT/HCPCS: 36415; 80053; 84439; 85025 ==

== ENCOUNTER 2017-11-08 08:59 | Outpatient (CLI) ==
[2017-11-08 09:41] VITALS: BP 116/77; TEMP 97.7
[2017-11-08] MEDS ORDERED: SODIUM CHLORIDE 0.9%-KCL 40MEQ 1,000 ML IV ONE (10:00)
[2017-11-08] MEDS ORDERED: SODIUM CHLORIDE IV SCH (10:00)
[2017-11-08] MEDS ORDERED: POTASSIUM CHLORIDE IV SCH (10:00)
== END 2017-11-08 09:00 | disposition home or self-care (01) ==
LOC: OPMED 08:59
PROVIDERS: ATTEND Family Medicine
DX: E86.0 Dehydration (principal); R19.7 Diarrhea, unspecified; E87.6 Hypokalemia
CPT/HCPCS: 96360; 96361